=== PATIENT | female | born 1970 | race Caucasian/White ===

== ENCOUNTER → 2019-07-28 07:36 | Outpatient (CLI) | payer OTHER, SELFPAY ==
--- NOTE | ~2019-07-28 | MR_ITS ---
EXAMINATION: MR knee LT wo con DATE: 07/28/2019 08:34 INDICATION: Left knee pain TECHNIQUE: Magnetic resonance imaging (MRI) of the left knee was performed without intravenous contra st. Sequences included coronal PD-weighted FSE, coronal PD-weighted FS FSE, sagittal T2-weighted FSE , sagittal PD-weighted FS FSE and axial PD weighted fat saturated FSE. COMPARISON: None. FINDINGS: Medial compartment: There is medial extrusion of the medial meniscal body without evident meniscal tear. Partial-thicknes s cartilage loss most prominent at the anterior tibial plateau and anterior weightbearing medial femo ral condyle where it involves greater than 50% the of the cartilage thickness with mild chondral surf jace irregularity and minimal subarticular edema. Lateral compartment: Lateral meniscus is normal. Articular cartilage appears normal however there are small marginal osteo phytes.. Patellofemoral compartment: Deep chondral fissuring with minimal subarticular edema along the medial patellar facet. Partial-thic kness chondral ulceration without degenerative subarticular changes at the lateral side of the latera l trochlea and at the inferior aspect of the lateral trochlea. Ligaments and tendons: Anterior and posterior cruciate ligaments are normal. The medial collateral ligament and fibular gerardo ateral ligament complex are normal. The extensor mechanism is normal. The visualized medial and later al hamstring tendons as well as the iliotibial band are normal. Fluid: Large left knee joint effusion. No loose osteochondral bodies identified. 4.9 x 2.3 x 1.4 cm Cali's cyst. Pretibial subcutaneous edema without discrete bursal fluid collection. Osseous/other: Aside from the previously noted minimal subarticular edema there is normal marrow signal. No fracture or pathologic marrow replacing process. IMPRESSION: 1. Tricompartmental osteoarthritis, moderate severity with high-grade chondral malacia in the medial compartment and mild with distal high-grade chondromalacia in the patellofemoral compartment and very mild in the lateral compartment. 2. Large likely reactive left knee joint effusion and moderate-sized Cali's cyst. Reviewed, dictated and finalized at location A. IMPRESSION: 1. Tricompartmental osteoarthritis, moderate severity with high-grade chondral malacia in the medial compartment and mild with distal high-grade chondromalaci a in the patellofemoral compartment and very mild in the lateral compartment. 2. Large likely reactive left knee joint effusion and moderate-sized Cali's cy st.
== END ==
PROVIDERS: PCP Family Medicine; Visit Provider Family Medicine
DX: M25.562 Pain in left knee (principal); M17.12 Unilateral primary osteoarthritis, left knee; M94.262 Chondromalacia, left knee; M25.462 Effusion, left knee; M71.22 Synovial cyst of popliteal space [Baker], left knee
CPT/HCPCS: 73721

== ENCOUNTER 2020-10-11 11:17 | Emergency (ER) | payer OTHER, SELFPAY ==
--- NOTE | ~2020-10-11 | XR_ITS ---
EXAMINATION: XR ankle LT min 3V DATE: 10/11/2020 11:58 INDICATION: Lateral left ankle pain post twisting injury TECHNIQUE: Anteroposterior, oblique, mortise, and lateral views of the left ankle were obtained. COMPARISON: None. FINDINGS: Small heterotopic ossicle near the tip of the lateral malleolus, likely sequela of old trauma. Sugges tion of a nondisplaced acute tiny avulsion fracture fragment at the tip of the lateral malleolus. Ali gnment remains essentially anatomic. No other fractures identified. Small Achilles and plantar calcan eal spurs. Soft tissue swelling with subcutaneous edema overlying the lateral malleolus. No left ankl e joint effusion. IMPRESSION: 1. Likely tiny nondisplaced avulsion fracture fragment at the tip of the lateral malleolus. Reviewed, dictated and finalized at location A. IMPRESSION: 1. Likely tiny nondisplaced avulsion fracture fragment at the tip of the latera l malleolus.
[2020-10-11 11:43] VITALS: BP 127/76; PULSE 72; RESP 16; TEMP 36.9; O2SAT 99
--- NOTE | 2020-10-11 12:04 | ED.LOWEXIN ---
HPI - Extremity Injury (Lower) General Chief Complaint: Extremity Injury, Lower Stated Complaint: LEFT ANKLE PAIN Time Seen by Provider: 10/11/20 12:04 Source: patient and RN notes reviewed Mode of arrival: ambulatory Limitations: no limitations History of Present Illness HPI Narrative: 49-year-old female presents to the [facility] with complaints of lateral left ankle pain. Patient states she was walking when her ankle rolled inversely. States it occurred last night. Has taken Tylenol for her pain. Swelling noted. Sensation intact in all 5 toes lateral and medial aspect of foot. Decreased range of motion secondary to pain and swelling Related Data Home Medications Medication Instructions Recorded Confirmed celecoxib 1 mg PO BID 10/11/20 10/11/20 divalproex 1 mg PO DAILY 10/11/20 10/11/20 furosemide 1 mg PO DAILY 10/11/20 10/11/20 multivitamin [Multi-Vitamin] 1 tablet PO DAILY 10/11/20 10/11/20 psyllium husk [Daily Fiber] 0.4 g PO DAILY 10/11/20 10/11/20 rimegepant [Nurtec ODT] 1 mg PO Q4-6H 10/11/20 10/11/20 sertraline 1 mg PO DAILY 10/11/20 10/11/20 Allergies Allergy/AdvReac Type Severity Reaction Status Date / Time Penicillins Allergy Unknown rash Verified 10/11/20 12:12 Review of Systems Review of Systems: All systems reviewed & are unremarkable except as noted in HPI and below Constitutional: Constitutional: Reports no additional constitutional complaints, Denies chills and Denies fever(s) Eyes: Eyes: Reports no additional eye complaints ENT: Reports system reviewed and no additional complaints, except as documented Cardiovascular: Cardiovascular: Reports no additional cardiovascular complaints and Denies chest pain Respiratory: Respiratory: Reports no additional respiratory complaints, Denies cough, Denies dyspnea and Denies wheezing Gastrointestinal: Gastrointestinal: Reports no additional gastrointestinal complaints Musculoskeletal: Musculoskeletal: Reports as per HPI, Reports arthralgias (Lateral left) and Reports joint swelling (Lateral left) Comments: Lateral left ankle pain and swelling Integumentary/Breasts: Skin/Breast: Reports system reviewed and no additional complaints, except as docu and Denies rash Neurologic: Reports system reviewed and no additional complaints, except as documented, Denies dizziness, Denies syncope, Denies headache(s), Denies focal weakness, Denies numbness and Denies weakness Psychiatric: Psychiatric: Reports no additional psychiatric complaints Endocrine: Endocrine: Reports no additional endocrine complaints Allergic/Immunologic: Allergic/Immunologic: Reports no additional allergic/immunologic complaints PMFSH Past Medical History Medical History Left medial knee pain Skin lesion of hand Family History Family History Other Acute myocardial infarction Asthma Cerebrovascular accident Diabetes mellitus Family history of arthritis Family history of coronary artery disease Family history of elevated blood lipids Family history of malignant neoplasm Family history of seizure disorder Hypertension Social History Social History Smoking status: Never smoker Second hand tobacco smoke exposure: No Alcohol intake: current Gender identity (if verbalized by the patient): Female Comments At the time of my signature, I reviewed and agree with the nursing past medical, surgical, social, and family history. There is no relevant family history pertinent to the patient complaint. Exam Const: General: healthy appearing, no acute distress and alert Nutritional Appearance: well nourished and obese centrally obese Orientation/consciousness: patient oriented x3 Limitations: no limitations HENMT: Head: normal to inspection Eyes: Pupils: Equal, round and reactive pupils present Neck: Neck: normal visual inspec
--- NOTE | 2020-10-14 08:02 | PC.NURSE ---
10/14/20- short leg OCL was applied 10/11/20 @1250 by sampler radioactive waste Raz Bloom
== END 2020-10-11 12:50 | disposition home or self-care (01) ==
PROVIDERS: Emergency Provider Nurse Practitioner; PCP Family Medicine
DX: S82.62XA Displaced fracture of lateral malleolus of left fibula, initial encounter for closed fracture (principal); X50.9XXA Other and unspecified overexertion or strenuous movements or postures, initial encounter
CPT/HCPCS: 29515; 73610; 99214; G0463

== ENCOUNTER → 2021-07-07 11:08 | Outpatient (CLI) | payer OTHER, SELFPAY ==
--- NOTE | ~2021-07-07 | MM_ITS ---
EXAMINATION: MM screening amado BI w heydi HISTORY: Screening TECHNIQUE: Craniocaudal and mediolateral oblique 3-D tomosynthesis images were obtained and synthetic 2-D images were generated. CAD analysis was submitted and interpreted. COMPARISON: Comparison to multiple prior studies sequentially, with oldest reviewed study dated 09/22. BREAST PARENCHYMAL COMPOSITION: Breast composed of scattered areas of fibroglandular density FINDINGS: There is no evidence of suspicious mass, calcification, or architectural distortion to sugg est malignancy in either breast. There has been no suspicious interval change. IMPRESSION: 1. No mammographic evidence of malignancy. 2. Recommend routine screening mammography in one year. BI-RADS Category 1: Negative Reviewed, dictated and finalized at location A. [employer] ASS[employer]
== END ==
PROVIDERS: Visit Provider Advanced Practice Midwife
DX: Z12.31 Encounter for screening mammogram for malignant neoplasm of breast (principal)
CPT/HCPCS: 77063; 77067

== ENCOUNTER 2021-10-17 09:43 | Emergency (ER) | payer OTHER, SELFPAY ==
[2021-10-17 09:56] VITALS: BP 146/84; PULSE 91; RESP 16; TEMP 37.2; O2SAT 98
--- NOTE | 2021-10-17 10:05 | ED.URI ---
HPI - URI/Sore Throat General Chief Complaint: Upper Respiratory Infection Stated Complaint: Sore Throat,Cough Time Seen by Provider: 10/17/21 10:07 Source: patient, RN notes reviewed and old records reviewed Mode of arrival: ambulatory Limitations: no limitations History of Present Illness HPI Narrative: 50-year-old female presents to the [facility] with complaints of a sore throat, sinus pressure and congestion along with a cough. Patient reports symptoms started Saturday, 2 days ago. Has tried NyQuil and DayQuil with minimal relief. States that she was exposed to RSV. 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 she wants to make sure she is not contagious tomorrow Related Data Home Medications Medication Instructions Recorded Confirmed celecoxib 200 mg capsule 1 mg PO BID 10/11/20 10/17/21 divalproex 500 mg tablet,extended 1 mg PO DAILY 10/11/20 10/17/21 release 24 hr multivitamin 1 tablet PO DAILY 10/11/20 10/17/21 psyllium husk 0.4 gram capsule 0.4 g PO DAILY 10/11/20 10/17/21 (Daily Fiber) rimegepant 75 mg disintegrating 1 mg PO Q4-6H 10/11/20 10/17/21 tablet (Nurtec ODT) Allergies Allergy/AdvReac Type Severity Reaction Status Date / Time Penicillins Allergy Unknown rash Verified 10/17/21 10:37 Review of Systems Review of Systems: All systems reviewed & are unremarkable except as noted in HPI and below Constitutional: Constitutional: Reports no additional constitutional complaints, Denies chills and Denies fever(s) Eyes: Eyes: Reports no additional eye complaints ENT: Reports as per HPI and Reports nasal congestion Cardiovascular: Cardiovascular: Reports no additional cardiovascular complaints Respiratory: Respiratory: Reports as per HPI, Reports cough, Denies dyspnea and Denies wheezing Gastrointestinal: Gastrointestinal: Reports no additional gastrointestinal complaints Musculoskeletal: Musculoskeletal: Reports no additional musculoskeletal complaints Integumentary/Breasts: Skin/Breast: Reports system reviewed and no additional complaints, except as docu Neurologic: Reports system reviewed and no additional complaints, except as documented Psychiatric: Psychiatric: Reports no additional psychiatric complaints Allergic/Immunologic: Allergic/Immunologic: Reports no additional allergic/immunologic complaints PMFSH Past Medical History Medical History Left medial knee pain Skin lesion of hand Family History Family History Other Acute myocardial infarction Asthma Cerebrovascular accident Diabetes mellitus Family history of arthritis Family history of coronary artery disease Family history of elevated blood lipids Family history of malignant neoplasm Family history of seizure disorder Hypertension Social History Social History Smoking status: Never smoker Second hand tobacco smoke exposure: No Alcohol intake: current Gender identity (if verbalized by the patient): Female Comments At the time of my signature, I reviewed and agree with the nursing past medical, surgical, social, and family history. There is no relevant family history pertinent to the patient complaint. Exam Const: General: healthy appearing, no acute distress and alert Nutritional Appearance: well nourished and obese Orientation/consciousness: patient oriented x3 Limitations: no limitations HENMT: Head: normal to inspection Ears: external ears normal, TM's normal bilaterally and EAC's normal Throat: posterior oropharynx normal and uvula midline Eyes: General: appearance normal, both eyes and all related structures Pupils: Equal, round and reactive pupils present Neck: Neck: normal visual inspection, no lymphadenopathy and no meningeal signs Chest: Chest palpation & inspection: normal inspection of the chest Resp: Effort & Inspection: karen
[2021-10-18 03:29] LABS: SARS-CoV-2 RNA PCR Negative
== END 2021-10-17 10:48 | disposition home or self-care (01) ==
PROVIDERS: Emergency Provider Nurse Practitioner; PCP Family Medicine
DX: J06.9 Acute upper respiratory infection, unspecified (principal); Z20.822 Contact with and (suspected) exposure to COVID-19
CPT/HCPCS: 87426; 87804; 99213; C9803; G0463; U0003; U0005

== ENCOUNTER 2021-10-19 18:06 | Emergency (ER) | payer OTHER, SELFPAY ==
[2021-10-19 18:14] VITALS: BP 120/73; PULSE 83; RESP 16; TEMP 36.5; O2SAT 99
--- NOTE | 2021-10-19 18:27 | ED.URI ---
HPI - URI/Sore Throat General Chief Complaint: Upper Respiratory Infection Stated Complaint: cough Time Seen by Provider: 10/19/21 18:16 Source: patient and RN notes reviewed Mode of arrival: ambulatory Limitations: no limitations History of Present Illness HPI Narrative: 50-year-old female presented for complaint of worsening productive cough with associated mid chest discomfort, states she feels that a pillow is over her head when she is breathing. Endorses headache, sore throat, and postnasal drainage. She was seen in the [facility] 2 days ago, tested negative for COVID and flu. She has been taking [id number] cough and cold medicines as instructed. She denies shortness of breath, wheezing, fatigue, fevers or chills. MD elicited complaint: cough Related Data Home Medications Medication Instructions Recorded Confirmed celecoxib 200 mg capsule 1 mg PO BID 10/11/20 10/17/21 divalproex 500 mg tablet,extended 1 mg PO DAILY 10/11/20 10/17/21 release 24 hr multivitamin 1 tablet PO DAILY 10/11/20 10/17/21 psyllium husk 0.4 gram capsule 0.4 g PO DAILY 10/11/20 10/17/21 (Daily Fiber) rimegepant 75 mg disintegrating 1 mg PO Q4-6H 10/11/20 10/17/21 tablet (Nurtec ODT) sumatriptan succinate 50 mg tablet tablet PO 10/19/21 Allergies Allergy/AdvReac Type Severity Reaction Status Date / Time Penicillins Allergy Unknown rash Verified 10/17/21 10:37 Review of Systems Review of Systems: ROS negative except as in HPI PMFSH Past Medical History Medical History Left medial knee pain Skin lesion of hand Family History Family History Other Acute myocardial infarction Asthma Cerebrovascular accident Diabetes mellitus Family history of arthritis Family history of coronary artery disease Family history of elevated blood lipids Family history of malignant neoplasm Family history of seizure disorder Hypertension Social History Social History Smoking status: Never smoker Second hand tobacco smoke exposure: No Alcohol intake: current Gender identity (if verbalized by the patient): Female Exam Narrative: GENERAL: Ill-appearing, nontoxic EYES: conjunctivae clear ENT: Mucous membranes moist. TM pearly trejo with dull light reflex bilaterally; no tragal tenderness. Oropharynx erythematous without lesions or exudate CHEST: Clear to auscultation, breath sounds equal. No wheezing, rhonchi, rales, or stridor. Dry cough noted. HEART: Regular rate and rhythm. No murmur heard. SKIN: Warm, dry, no rash. NEURO: Alert and oriented x3. PSYCH: Normal mood and affect Course Course Emergency Course: Patient is aware of diagnosis, understands and agrees to treatment plan. Anticipatory guidance given. Patient agrees to follow-up as directed and is aware of reasons to seek care at the emergency department. Portions of this record may have been created with voice recognition software Level of Care: Express Care Visit Vital Signs Vital signs: Vital Signs Temperature 97.7 F 10/19/21 18:14 Pulse Rate 83 10/19/21 18:14 Respiratory Rate 16 10/19/21 18:14 Blood Pressure 120/73 10/19/21 18:14 Pulse Oximetry 99 10/19/21 18:14 Oxygen Delivery Room Air 10/19/21 18:14 Temperature 97.7 F 10/19/21 18:14 Pulse Rate 83 10/19/21 18:14 Respiratory Rate 16 10/19/21 18:14 Blood Pressure 120/73 10/19/21 18:14 Pulse Oximetry 99 10/19/21 18:14 Oxygen Delivery Room Air 10/19/21 18:14 reviewed MDM - URI/Sore Throat MDM Narrative Medical decision making narrative: Based on PE she does not appear to have pneumonia. Discussed the diagnosis of acute bronchitis. Advised supportive measures and signs/symptoms to go to the ER. Pt is appropriate for outpt treatment and f/u. Differential Diagnosis Differential
== END 2021-10-19 18:34 | disposition home or self-care (01) ==
PROVIDERS: Emergency Provider Nurse Practitioner Family
DX: J40 Bronchitis, not specified as acute or chronic (principal)
CPT/HCPCS: 99213; G0463

== ENCOUNTER 2022-02-12 01:04 | Day surgery (SDC) | payer OTHER, SELFPAY ==
[2022-01-24 13:12] VITALS: BMI 43.1
--- NOTE | 2022-02-12 10:47 | WPDANESEPPF ---
Anes - Initial Pre Proc Eval Procedure: Operation Date: 02/12/22 12:30 Proposed Procedures p Screening Colonoscopy - Daniel Calloway MD Date/Time: 02/12/22 10:47 Surgeon: Daniel Calloway MD Pre Op Diagnosis: neoplasm screening Patient Data Age: 51 Gender: F Height: 1.6 m Weight: 110.5 kg Allergies Allergy/AdvReac Type Severity Reaction Status Date / Time Penicillins Allergy Unknown rash Verified 02/12/22 11:33 Home Medications Medication Instructions Recorded Confirmed Type celecoxib 200 mg capsule 200 mg PO BID 10/11/20 01/24/22 History divalproex 500 mg tablet,extended 500 mg PO DAILY 10/11/20 01/24/22 History release 24 hr multivitamin 1 tablet PO DAILY 10/11/20 01/24/22 History psyllium husk 0.4 gram capsule 0.4 g PO DAILY 10/11/20 01/24/22 History (Daily Fiber) furosemide 40 mg tablet 40 mg PO DAILY 01/24/22 01/24/22 History sertraline 50 mg tablet See Rx Instructions .Route 01/27/22 Rx .COMPLEX #90 tabs Patient hx anesthesia problems: none Family hx anesthesia problems: none Results Review: All pre-operative results and documents have been reviewed as part of the pre-operative evaluation. [facility] Past Medical History Medical History (Updated 02/12/22 @ 11:46 by Alin Collier DO) Asthma Cholecystectomy planned Left medial knee pain Seizure absence seizures? has multiple a day sometimes. No LOC Skin lesion of hand Surgical History Surgical History (Updated 02/12/22 @ 10:48 by Alin Collier DO) History of hysterectomy History of knee surgery History of oophorectomy Hx of LASIK Family History Family History Father Chronic osteoarthritis Asthma Acute myocardial infarction Seizure Cerebrovascular accident COPD (chronic obstructive pulmonary disease) Mother Chronic osteoarthritis Carcinoma of colon Acute myocardial infarction Hypertension Lupus Sibling Asthma Diabetes mellitus Acute myocardial infarction Hypertension Kidney disease Sibling Asthma Other Family history of arthritis Family history of coronary artery disease Family history of elevated blood lipids Family history of malignant neoplasm Family history of seizure disorder Social History Social History Smoking status: Never smoker Second hand tobacco smoke exposure: Yes Alcohol intake: current Alcohol use details: occasional Substance use: never Substance use type: does not use Living arrangements: with family Additional occupation/education comments: daycare Gender identity (if verbalized by the patient): Female Spiritual care concerns: No Anes - Eval Final PreProcedure Day of Procedure 02/12/22 10:47 Patient weight: morbidly obese Heart: regular rate and rhythm Lungs: clear to auscultation Airway: Mallampati scale class II Neurological: alert and oriented Last oral intake: >/= 8 hours ASA classification: III Emergent: no Anesthetic plan: proceed Anesthesia type and monitoring: general GIVS and standard monitoring Results Review: All pre-operative results and documents have been reviewed as part of the pre-operative evaluation. Informed Consent: The patient's anesthetic plan and its attendant risks and benefits were discussed with the patient/family/POA. Questions were solicited and answers provided to the satisfaction of the patient/family/POA.
[2022-02-12 11:34] VITALS: BP 138/91; PULSE 86; RESP 18; TEMP 36.1; O2SAT 96
[2022-02-12] MEDS: LACTATED RINGERS 1,000 ML 150 ML IV CONT (11:45)
--- NOTE | 2022-02-12 11:45 | PM.HPGS ---
History of Present Illness History of Present Illness Consent: Risks, benefits, and alternatives have been discussed and questions answered. Patient agrees to proceed with procedure. Chief complaint: neoplasm screening Narrative: Carolann Matthews is a 51 year old female Presents for screening colonoscopy. Patient's current weight appetite and bowel movements appear normal. Patient denies abdominal pain. She has had no bleeding. Family history is significant her mother had renal cell carcinoma. Several years later she reports having had carcinoma spread to her Mother's colon. patient presents today for neoplasia screening. Review of Systems Review of Systems: Review of systems noncontributory. [facility] Past Medical History Medical History (Updated 02/12/22 @ 11:46 by Alin Collier DO) Asthma Cholecystectomy planned Left medial knee pain Seizure absence seizures? has multiple a day sometimes. No LOC Skin lesion of hand Surgical History Surgical History (Updated 02/12/22 @ 10:48 by Alin Collier DO) History of hysterectomy History of knee surgery History of oophorectomy Hx of LASIK Family History Family History Father Chronic osteoarthritis Asthma Acute myocardial infarction Seizure Cerebrovascular accident COPD (chronic obstructive pulmonary disease) Mother Chronic osteoarthritis Carcinoma of colon Acute myocardial infarction Hypertension Lupus Sibling Asthma Diabetes mellitus Acute myocardial infarction Hypertension Kidney disease Sibling Asthma Other Family history of arthritis Family history of coronary artery disease Family history of elevated blood lipids Family history of malignant neoplasm Family history of seizure disorder Social History Social History Smoking status: Never smoker Second hand tobacco smoke exposure: Yes Alcohol intake: current Alcohol use details: occasional Substance use: never Substance use type: does not use Living arrangements: with family Additional occupation/education comments: daycare Gender identity (if verbalized by the patient): Female Spiritual care concerns: No Meds Home Medications and Allergies Home Medications Medication Instructions Recorded Confirmed Type celecoxib 200 mg capsule 200 mg PO BID 10/11/20 01/24/22 History divalproex 500 mg tablet,extended 500 mg PO DAILY 10/11/20 01/24/22 History release 24 hr multivitamin 1 tablet PO DAILY 10/11/20 01/24/22 History psyllium husk 0.4 gram capsule 0.4 g PO DAILY 10/11/20 01/24/22 History (Daily Fiber) furosemide 40 mg tablet 40 mg PO DAILY 01/24/22 01/24/22 History sertraline 50 mg tablet See Rx Instructions .Route 01/27/22 Rx .COMPLEX #90 tabs Allergies Allergy/AdvReac Type Severity Reaction Status Date / Time Penicillins Allergy Unknown rash Verified 02/12/22 11:33 Vital Signs Vital Signs - 24 hr 02/12/22 11:34 Temperature 97 F L Pulse Rate 86 Respiratory Rate 18 Blood Pressure 138/91 H Pulse Oximetry 96 Oxygen Delivery Room Air Exam Narrative: Physical exam reveals patient to be alert. Vital signs stable. HEENT exam is unremarkable. Patient is anicteric. Lungs are clear to auscultation and percussion. Heart is without murmur or extra sounds. Abdomen bowel sounds are present soft nontender with no organomegaly. Digital external rectal exam is normal. Assessment and Plan Assessment and plan (1) Screening for colon cancer: Code(s): Z12.11 - Encounter for screening for malignant neoplasm of colon Status: Acute Assessment and Plan: Patient presents today for screening colonoscopy. She may have a family history of colon cancer although history is not certain in her mother. Further recommendations will be given after colonosco
[2022-02-12 12:42] VITALS: BP 119/79; PULSE 70; RESP 15; O2SAT 97
[2022-02-12 12:52] VITALS: BP 112/66; PULSE 74; RESP 14; O2SAT 97
[2022-02-12 13:02] VITALS: BP 115/68; PULSE 75; RESP 15; O2SAT 97
== END 2022-02-12 13:16 | disposition home or self-care (01) ==
PROVIDERS: PCP Family Medicine; Visit Provider Internal Medicine Gastroenterology
PROC: 0DJD8ZZ Inspection of Lower Intestinal Tract, Via Natural or Artificial Opening Endoscopic (ICD-10-PCS; CPT 45378; principal; 2022-02-12 12:30)
DX: Z12.11 Encounter for screening for malignant neoplasm of colon (principal); Z80.0 Family history of malignant neoplasm of digestive organs; K64.8 Other hemorrhoids; J45.909 Unspecified asthma, uncomplicated; R56.9 Unspecified convulsions; E66.01 Morbid (severe) obesity due to excess calories; Z68.41 Body mass index [BMI] 40.0-44.9, adult
CPT/HCPCS: 45378; J2704; J7120

== ENCOUNTER 2022-02-15 08:20 | Outpatient (CLI) | payer OTHER, SELFPAY ==
--- NOTE | 2022-02-15 08:27 | EST_ITS ---
Patient Info Name: Carolann Matthews Age: 51 years : 1970 Gender: Female Ht: 63 in Wt: 244 lbs BSA: 2.28 m2 HR: 68 bpm BP: 129 / 76 mmHg Heart Rhythm: Sinus Rhythm Exam Date: 02/15/2022 9:24 AM Exam Location: [facility] Stress Patient Status: Outpatient Admit Date: 02/15/2022 Staff Ordering Physician: Lluvia Thornton Attending Provider: Lluvia Thornton Exercise Technologist: Kandy Sweeney CT Exercise Physician: Thang Holly DO Exam Type: CA stress test treadmill Study Info Indications R07.9 - Chest pain, unspecified A treadmill exercise stress test was performed. Summary 1. 1. Negative Krishna exercise stress test for ischemic ST changes by ECG criteria. 2. 2. Reduced functional capacity, achieving 7 METs of workload. 3. 3. Appropriate HR response to exercise. 4. 4. Appropriate HR recovery at 1 minute post exercise. 5. 5. No imaging with stress testing. 6. 6. Patient informed of results of the test. Protocol: Krishna Stress ECG Details Stage: REST Duration (min): 1 min : 51 sec Speed (mph): 0.0 Grade (%): 0 HR (bpm): 72 SBP (mmHg): 129 DBP (mmHg): 76 METS: --- Stage: REST Duration (min): 5 min : 56 sec Speed (mph): 0.0 Grade (%): 0 HR (bpm): 76 SBP (mmHg): 129 DBP (mmHg): 76 METS: --- Stage: STAGE 1 Duration (min): 1 min : 0 sec Speed (mph): 1.7 Grade (%): 10 HR (bpm): 121 SBP (mmHg): 129 DBP (mmHg): 76 METS: --- Stage: STAGE 1 Duration (min): 2 min : 0 sec Speed (mph): 1.7 Grade (%): 10 HR (bpm): 133 SBP (mmHg): 129 DBP (mmHg): 76 METS: --- Stage: STAGE 1 Duration (min): 3 min : 0 sec Speed (mph): 1.7 Grade (%): 10 HR (bpm): 138 SBP (mmHg): 178 DBP (mmHg): 72 METS: --- Stage: STAGE 2 Duration (min): 1 min : 0 sec Speed (mph): 2.5 Grade (%): 12 HR (bpm): 149 SBP (mmHg): 178 DBP (mmHg): 72 METS: --- Stage: STAGE 2 Duration (min): 2 min : 0 sec Speed (mph): 2.5 Grade (%): 12 HR (bpm): 157 SBP (mmHg): 189 DBP (mmHg): 65 METS: --- Stage: STAGE 2 Duration (min): 3 min : 0 sec Speed (mph): 2.5 Grade (%): 12 HR (bpm): 159 SBP (mmHg): 189 DBP (mmHg): 65 METS: --- Stage: RECOVERY Duration (min): 0 min : 59 sec Speed (mph): 0.0 Grade (%): 0 HR (bpm): 125 SBP (mmHg): 163 DBP (mmHg): 61 METS: --- Stage: RECOVERY Duration (min): 1 min : 59 sec Speed (mph): 0.0 Grade (%): 0 HR (bpm): 98 SBP (mmHg): 163 DBP (mmHg): 61 METS: --- Stage: RECOVERY Duration (min): 2 min : 59 sec Speed (mph): 0.0 Grade (%): 0 HR (bpm): 93 SBP (mmHg): 136 DBP (mmHg): 64 METS: --- Stage: RECOVERY Duration (min): 3 min : 5 sec Speed (mph): 0.0 Grade (%): 0 HR (bpm): 97 SBP (mmHg): 136 DBP (mmHg): 64 METS: --- Rest HR: 76
== END 2022-02-15 08:21 | disposition home or self-care (01) ==
LOC: ANHCARD 08:22
PROVIDERS: PCP Family Medicine; Visit Provider Nurse Practitioner Family
DX: R20.2 Paresthesia of skin (principal); R20.0 Anesthesia of skin; I34.0 Nonrheumatic mitral (valve) insufficiency; R07.9 Chest pain, unspecified; Z82.49 Family history of ischemic heart disease and other diseases of the circulatory system
CPT/HCPCS: 93017

== ENCOUNTER 2023-03-31 12:48 | Emergency (ER) | payer OTHER, SELFPAY ==
[2023-03-31 12:59] VITALS: BP 132/81; PULSE 72; RESP 16; TEMP 36.3; O2SAT 99
--- NOTE | 2023-03-31 14:21 | ED.URI ---
HPI - URI/Sore Throat General Chief Complaint: Upper Respiratory Infection Stated Complaint: cough Time Seen by Provider: 03/31/23 14:21 Source: patient Mode of arrival: ambulatory Limitations: no limitations History of Present Illness HPI Narrative: 52-year-old female presents with complaint of cough for 3 days. Afebrile. Reports last night she had coughing fit for 5-10 minutes and could not get herself to stop. Was short of breath after. Patient has history of exercise induced asthma. Does not use an inhaler. No shortness of breath or chest pain at this time. 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 All systems reviewed and negative except as noted above. Related Data Home Medications Medication Instructions Recorded Confirmed multivitamin 1 tablet PO DAILY 10/11/20 03/31/23 psyllium husk 0.4 gram capsule 0.4 g PO DAILY 10/11/20 03/29/23 (Daily Fiber) divalproex 500 mg tablet,extended 500 mg PO BID 01/04/23 03/31/23 release 24 hr rimegepant 75 mg disintegrating 75 mg PO ONCE 01/04/23 03/29/23 tablet (Nurtec ODT) ubrogepant 100 mg tablet (Ubrelvy) 100 mg PO ONCE 01/04/23 03/29/23 Allergies Allergy/AdvReac Type Severity Reaction Status Date / Time Penicillins Allergy Unknown rash Verified 03/31/23 13:44 Review of Systems Review of Systems: CONSTITUTIONAL: Denies fever, chills, or sweats. EYES: Denies visual changes, redness, or discharge. ENT: Denies rhinorrhea, congestion, sore throat, or otalgia. CARDIOVASCULAR: Denies chest pain, palpitations, or edema. RESPIRATORY: Reports cough. Denies dyspnea. GASTROINTESTINAL: Denies abdominal pain, nausea, vomiting, or diarrhea. GENITOURINARY: Denies dysuria or hematuria. SKIN: Denies rash or itching. MUSCULOSKELETAL: Denies back pain, joint pain, or myalgia. NEUROLOGIC: Denies headache, numbness, or weakness. PSYCHIATRIC: Denies anxiety or depression. All other systems reviewed are negative, except as documented in HPI. [facility] Past Medical History Medical History Asthma Cholecystectomy planned Left medial knee pain Screening for diabetes mellitus Seizure absence seizures? has multiple a day sometimes. No LOC Skin lesion of hand Surgical History Surgical History History of hysterectomy History of knee surgery History of oophorectomy Hx of LASIK Family History Family History Father Chronic osteoarthritis Asthma Acute myocardial infarction Seizure Cerebrovascular accident COPD (chronic obstructive pulmonary disease) Mother Chronic osteoarthritis Carcinoma of colon Acute myocardial infarction Hypertension Lupus Sibling Asthma Diabetes mellitus Acute myocardial infarction Hypertension Kidney disease Sibling Asthma Other Family history of arthritis Family history of coronary artery disease Family history of elevated blood lipids Family history of malignant neoplasm Family history of seizure disorder Social History Social History Smoking status: Never smoker Second hand tobacco smoke exposure: Yes Alcohol intake: current Alcohol use details: occasional Substance use: never Substance use type: does not use Living arrangements: with family 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 There is no relevant family history pertinent to the presenting complaint. Exam Narrative: GENERAL: This is a well-nourished, well-developed patient, in no apparent distress. HEAD: normo
== END 2023-03-31 14:40 | disposition home or self-care (01) ==
PROVIDERS: Emergency Provider Nurse Practitioner Family; PCP Family Medicine
DX: R05.9 Cough, unspecified (principal); J45.990 Exercise induced bronchospasm
CPT/HCPCS: 99213; G0463

== ENCOUNTER 2023-05-10 11:01 | Outpatient (CLI) | payer OTHER, SELFPAY ==
--- NOTE | ~2023-05-10 | XR_ITS ---
XR thoracic spine 3V DATE: 05/10/2023 11:26 INDICATION: Thoracic spine pain TECHNIQUE: AP, lateral, swimmer views COMPARISON: None FINDINGS: There is mild degenerative spurring of the thoracic spine. No fracture or dislocation or herman ne destruction of the thoracic spine. The thoracic pedicles are intact. No significant paraspinal sof t tissue thickening is evident. Surgical clips, upper abdomen on lateral view, likely due to cholecystectomy IMPRESSION: Mild degenerative spurring Reviewed, dictated and finalized at location B. TER IMPRESSION: Mild degenerative spurring
--- NOTE | ~2023-05-10 | XR_ITS ---
XR cervical spine 4-5V DATE: 05/10/2023 11:26 INDICATION: Left arm pain TECHNIQUE: AP, open-mouth and flexion, extension and neutral lateral views COMPARISON: None FINDINGS: C1 and C2 are normally aligned and the odontoid process is intact. Cervical curvature is intact on lateral view. There is mild cervical dextroscoliosis. No fracture or dislocation or locked facet or prevertebral soft tissue swelling. No cervical instabil ity is noted. There is mild loss of height at C6-7 interspace; the interspaces are otherwise well preserved. IMPRESSION: Mild loss of height at C6-7 interspace Reviewed, dictated and finalized at location B. F INFORMATICS OFFICER
--- NOTE | 2023-05-10 11:45 | ECG_ITS ---
Measurements Intervals [place] Rate: 70 P: 39 [place]: 179 QRS: -2 QRSD: 76 T: 31 QT: 391 QTc: 424 Interpretive Statements SINUS RHYTHM WITH SINUS ARRHYTHMIA BORDERLINE T WAVE ABNORMALITY- ANTERIOR LEADS BORDERLINE ECG NO PREVIOUS ECG AVAILABLE FOR COMPARISON Electronically Signed On 05-10-2023 12:22:39 [employer] by Thang Holly D.O.
[2023-05-10 11:50] LABS: Basophils Percent Auto 0.5 % (0.2-1.2); Eosinophils Absolute Auto 0.1 K/mm3 (0-0.3); Eosinophils Percent Auto 1.1 % (0-4.4); Hematocrit 43.4 % (37.0-47.0); Hemoglobin 14.4 g/dL (12.0-15.0); Immature Granulocyte Absolute 0.01 K/mm3 (0.00-0.031); Immature Granulocyte Percent A 0.2 % (0-0.5); Lymphocytes Absolute Auto 1.64 K/mm3 (0.9-3.2); Lymphocytes Percent Auto 26.5 % (18.3-44.2); Mean Corpuscular HGB Conc 33.2 g/dl (32-36); Mean Corpuscular Volume 87.3 fl (80-100); Monocytes Absolute Auto 0.4 K/mm3 (0.1-0.6); Monocytes Percent Auto 6.5 % (2.6-8.5); Neutrophils Absolute Auto 4.1 K/mm3 (1.3-6.7); Neutrophils Percent Auto 65.2 % (45.5-73.1); Platelet Count Result 230 k/mm3 (150-375); Red Blood Count 4.97 M/mm3 (4.2-5.4); Red Cell Distribution Width 12.5 % (11.5-14.5); White Blood Count 6.2 K/mm3 (4.5-10.0)
[2023-05-10 12:00] LABS: Alanine Aminotransferase 50 U/L (6-35); Albumin Level 4.1 g/dL (3.5-5.1); Alkaline Phosphatase 71 U/L (38-126); Anion Gap 10 mmol/L (8-16); Aspartate Amino Transferase 31 U/L (14-36); Bilirubin,Total 0.6 mg/dL (0.2-1.3); Blood Urea Nitrogen 13 mg/dL (7-17); Carbon Dioxide 24 mmol/L (22-30); Chloride 107 mmol/L (98-107); Estimated Glomerular Filt Rate > 60; Glucose 101 mg/dL (65-110); Sodium 141 mmol/L (137-145)
[2023-05-10 12:10] LABS: Troponin I < 0.012 ng/mL (0.000-0.034)
== END 2023-05-10 11:02 | disposition home or self-care (01) ==
PROVIDERS: PCP Family Medicine; Visit Provider Physician Assistant
DX: M79.602 Pain in left arm (principal); M54.6 Pain in thoracic spine; R07.9 Chest pain, unspecified; R94.31 Abnormal electrocardiogram [ECG] [EKG]
CPT/HCPCS: 36415; 72050; 72072; 80053; 84484; 85025; 93005

== ENCOUNTER 2023-09-24 10:53 | Outpatient (CLI) | payer OTHER, SELFPAY ==
--- NOTE | ~2023-09-24 | CT_ITS ---
CT of the Abdomen and Pelvis: Indication: Early satiety Technique: 2.5 mm axial scans were obtained through the abdomen and pelvis following intravenous adm inistration of 100 cc of Omnipaque 350. Dose reduction technique was used on this scan by utilizing a utomated exposure control and iterative reconstruction technique. The dose-length product (DLP) was 1 083.78 mGy-cm. Findings: Scans through the lung bases are unremarkable. The liver, spleen, pancreas, adrenals and kidneys are within normal limits. Cholecystectomy clips are present. No evidence of aortic aneurysm. No lymphadenopathy. No bowel obstruction or bowel wall thickening. There is no evidence to suggest acute appendicitis. Images through the pelvis were performed. Urinary bladder unremarkable. No pelvic mass seen. No ascit es. Impression: No significant abnormalities seen. Reviewed, dictated and finalized at [facility]. Impression: No significant abnormalities seen.
== END 2023-09-24 10:54 ==
PROVIDERS: PCP Nurse Practitioner Family
DX: R63.4 Abnormal weight loss (principal); R68.81 Early satiety; R10.10 Upper abdominal pain, unspecified
CPT/HCPCS: 74177; Q9967